=== PATIENT | male | born 1975 | race Caucasian/White ===

== ENCOUNTER 2023-01-23 19:47 | Emergency (ER) | payer OTHER ==
[~2023-01-23] VITALS: Ht 188 cm; Wt 95.5 kg
[2023-01-23 19:57] VITALS: TEMP 98.3
[2023-01-23] MEDS ORDERED: PERTUSS(ACELL),DIPH,TET VAC/PF 0.5 ML SYRINGE IM. ONE (22:30)
[2023-01-23] MEDS ORDERED: LIDOCAINE 1% 10 ML VIAL SQ ONE (22:30)
[2023-01-23] MEDS ORDERED: PENI500T2 PO (22:59)
[2023-01-23 23:00] VITALS: BP 134/71; PULSE 59; RESP 17
== END 2023-01-23 23:34 | disposition home or self-care (01) ==
LOC: EMS 19:47
DX: S01.511A Laceration without foreign body of lip, initial encounter (principal); X58.XXXA Exposure to other specified factors, initial encounter; Y93.89 Activity, other specified; Y92.89 Other specified places as the place of occurrence of the external cause; Y99.8 Other external cause status
CPT/HCPCS: 99283; 90715; 90471; 12011; J3490

== ENCOUNTER 2024-07-26 21:29 | Emergency (ER) | payer OTHER ==
[~2024-07-26] VITALS: Ht 188 cm; Wt 97.7 kg
[~2024-07-26 21:29] MED LIST: PENI500T2 PO
[2024-07-26 21:36] VITALS: BP 152/82; PULSE 71; RESP 16; TEMP 98.3; O2SAT 98
[2024-07-26 22:15] LABS: HEMATOCRIT 44.6 % (41-53); MEAN CORPUSCULAR HGB CONC 33.5 G/dL (31.0-37.0); MEAN CORPUSCULAR VOLUME 87 fL (80-100); PLATELET COUNT (AUTO) 197 K/uL (150-450); RED BLOOD CELL COUNT(AUTO) 5.16 MIL/uL (4.50-5.90); RED CELL DISTRIBUTION WIDTH 13.7 % (11.5-14.5); WHITE BLOOD COUNT (AUTO) 8.1 K/uL (4.5-11.0)
[2024-07-26 22:23] LABS: CALCIUM, TOTAL 8.5 mg/dL (8.8-10.5); CREATININE 1.29 mg/dL (0.60-1.30); POTASSIUM 4.1 mmol/L (3.5-5.1)
[2024-07-26 22:29] LABS: BAND NEUTROPHILS % (MANUAL) 2 % (0-5); EOSINOPHILS % (MANUAL) 12 % (1-6); LYMPHOCYTES % (MANUAL) 29 % (22-44); MONOCYTES % (MANUAL) 8 % (2-9); RBC MORPHOLOGY COMMENT NORMAL RBC MORPH; SEGMENTED NEUTROPHILS % 49 % (40-70); TOTAL CELLS COUNTED 100
[2024-07-26 22:32] LABS: TROPONIN I-HIGH SENSITIVITY 4 ng/L (<76)
[2024-07-27 00:40] LABS: ALBUMIN 3.6 g/dL (3.4-5.0); BILIRUBIN,DIRECT 0.1 mg/dL (0.00-0.20); BILIRUBIN,TOTAL 0.4 mg/dL (0.1-1.0); TOTAL PROTEIN, SERUM 7.1 g/dL (6.4-8.2)
[2024-07-27] MEDS ORDERED: MAG30ORA11 PO (01:03)
[2024-07-27] MEDS ORDERED: OMEP20 PO (01:03)
[2024-07-27] MEDS ORDERED: ONDA-104 PO (01:03)
[2024-07-27] MEDS ORDERED: ACET-2080 PO (01:03)
== END 2024-07-27 01:15 | disposition home or self-care (01) ==
LOC: EMS 21:29
DX: K80.50 Calculus of bile duct without cholangitis or cholecystitis without obstruction (principal)
CPT/HCPCS: 71045; 76700; 80048; 80076; 84484; 85025; 93005; 99285; 36415-L1; 36415-TC